=== PATIENT | male | born 1960 | race Caucasian/White ===

== ENCOUNTER 2016-12-02 05:19 | Emergency (ER) | payer OTHER ==
[~2016-12-02] VITALS: Ht 182.9 cm; Wt 88.0 kg
[2016-12-02 05:51] VITALS: BP 133/91
--- NOTE | 2016-12-02 05:56 | NUR ---
gloria ku at bedside to imelda horton.
== END 2016-12-02 06:19 | disposition home or self-care (01) ==
LOC: ER 05:21
DX: L50.9 Urticaria, unspecified (principal)
CPT/HCPCS: 99283; A4606; Z7610

== ENCOUNTER 2018-11-08 16:57 | Emergency (ER) | payer MEDICAID, OTHER ==
[~2018-11-08] VITALS: Ht 182.9 cm; Wt 94.3 kg
--- NOTE | 2018-11-08 17:32 | NUR ---
GENERALIZED WEAKNESS X 1 WEEK. PT SPEAKING W/ HIS [place] LANGUAGE, FAMILY MEMBER @ BS HELPING W/ TRANSLATION. PT AAOX4, VSS. DENIES CP, SOB, DIZZINESS, N/V/D @ THIS TIME. 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 PT SEEN BY CANDY VAUGHN & WILL CONT TO MONITOR.
[2018-11-08 17:57] LABS: BASOPHILS # (AUTO) 0.1 /CMM (0.0-0.2); BASOPHILS % (AUTO) 1.2 % (0.0-2.0); EOSINOPHILS % (AUTO) 4.9 % (0.0-6.0); HEMATOCRIT 44 % (39-51); HEMOGLOBIN 15.1 g/dL (13.5-17.5); LYMPHOCYTES # (AUTO) 1.5 /CMM (0.8-4.8); LYMPHOCYTES % (AUTO) 26.4 % (20.0-44.0); MEAN CORPUSCULAR HGB CONC 34 g/dl (31.0-36.0); MEAN CORPUSCULAR VOLUME 97 fL (80-96); MONOCYTES # (AUTO) 0.5 /CMM (0.1-1.30); NEUTROPHILS # (AUTO) 3.3 /CMM (1.8-8.9); NEUTROPHILS % (AUTO) 58.5 % (43.0-81.0); PLATELET COUNT (AUTO) 254 /CMM (150-450); RED BLOOD CELL COUNT(AUTO) 4.51 MIL/uL (4.5-6.0); WHITE BLOOD COUNT (AUTO) 5.7 K/uL (4.3-11.0)
[2018-11-08] MEDS ORDERED: IV NS 0.9% 1,000 ML BAG IV ONE (18:00)
[2018-11-08 18:07] LABS: CALCIUM, SERUM 8.9 mg/dL (8.5-10.1); CARBON DIOXIDE 29 mmol/L (21-32); CHLORIDE 105 mmol/L (98-107); CREATININE 1.1 mg/dL (0.6-1.3); GLUCOSE 142 mg/dL (74-106); POTASSIUM 3.8 mmol/L (3.5-5.1); SODIUM SERUM 140 mmol/L (136-145); UREA NITROGEN, BLOOD 11 mg/dL (7-18)
[2018-11-08 18:23] LABS: ALANINE AMINOTRANSFERASE 38 U/L (12-78); ALKALINE PHOSPHATASE 162 U/L (46-116); ASPARTATE AMINOTRANSFERASE 29 U/L (15-37); BILIRUBIN,DIRECT 0.1 mg/dL (0.0-0.2); BILIRUBIN,TOTAL 0.2 mg/dL (0.2-1.0); LIPASE 249 U/L (73-393); TOTAL PROTEIN, SERUM 7.3 g/dL (6.4-8.2)
--- NOTE | 2018-11-08 18:44 | NUR ---
PT AMB TO BR WITHOUT DIFFICULTY. URINE COLLECTED & SENT TO LAB.
[2018-11-08 18:52] LABS: APPEARANCE,URINE Clear (CLEAR); BILIRUBIN,URINE Negative (NEGATIVE); BLOOD, URINE Negative Ery/uL (NEGATIVE); COLOR,URINE Yellow (YELLOW); KETONES,URINE Negative (NEGATIVE); LEUKOCYTE ESTERASE ,URINE Negative (NEGATIVE); NITRITE, URINE Negative (NEGATIVE); PROTEIN,URINE Negative (NEGATIVE); UGLUCOSE Negative (NEGATIVE); UROBILINOGEN,URINE 0.2 EU/dL (0.2)
--- NOTE | 2018-11-08 19:29 | NUR ---
Patient discharged to home in stable condition. Written and verbal after care instructions given. Patient verbalizes understanding of instruction. IV removed. Catheter intact and site benign. Pressure and 4x4 applied to site. No bleeding noted.
[2018-11-08 19:30] VITALS: BP 140/82
== END 2018-11-08 19:31 | disposition home or self-care (01) ==
LOC: ER 17:03
DX: R10.9 Unspecified abdominal pain (principal); R53.1 Weakness; G40.909 Epilepsy, unspecified, not intractable, without status epilepticus
CPT/HCPCS: 36415; 80048; 80076; 81001; 83690; 84484; 85025; 93005; 99284; A4606; J7030; 81000-TC

== ENCOUNTER 2019-10-13 03:46 | Emergency (ER) | payer OTHER ==
[~2019-10-13] VITALS: Ht 182.9 cm; Wt 93.0 kg
--- NOTE | 2019-10-13 04:06 | NUR ---
BIBWIFE FROM HOME TO ER BED 2. AAOX4, NO RESP DISTRESS NOTED, BREATHING EVEN AND UNLABORED. C/O L FLANK PAIN SINCE YESTERDAY. RATE PAIN 8/10 CRAMPING AND TIGHT FEELING. PT'S REPORT THAT HE IS ALSO NAUSEOUS AND HAD DIARRHEA SINCE YESTERDAY. REPORTS THAT SHE GAVE PEPTO BISMUTH YESTERDAY. IS AT BEDSIDE FOR EVAL. AWAITING ORDERS
[2019-10-13] MEDS ORDERED: IV NS 0.9% 500 ML BAG IV ONE (04:30)
[2019-10-13 04:37] LABS: MONOCYTES # (AUTO) 0.7 /CMM (0.1-1.30)
[2019-10-13 04:41] LABS: BASOPHILS % (AUTO) 0.3 % (0.0-2.0); EOSINOPHILS % (AUTO) 1.1 % (0.0-6.0); HEMATOCRIT 42 % (39-51); HEMOGLOBIN 14.6 g/dL (13.5-17.5); LYMPHOCYTES # (AUTO) 1.6 /CMM (0.8-4.8); LYMPHOCYTES % (AUTO) 33.7 % (20.0-44.0); MEAN CORPUSCULAR HGB CONC 35 g/dl (31.0-36.0); MEAN CORPUSCULAR VOLUME 97 fL (80-96); NEUTROPHILS # (AUTO) 2.5 /CMM (1.8-8.9); NEUTROPHILS % (AUTO) 50.9 % (43.0-81.0); PLATELET COUNT (AUTO) 210 /CMM (150-450); RED BLOOD CELL COUNT(AUTO) 4.35 MIL/uL (4.5-6.0); WHITE BLOOD COUNT (AUTO) 4.8 K/uL (4.3-11.0)
[2019-10-13 04:50] LABS: ALBUMIN 3.4 g/dL (3.4-5.0); BILIRUBIN,DIRECT 0.1 mg/dL (0.0-0.2); BILIRUBIN,TOTAL 0.4 mg/dL (0.2-1.0); CALCIUM, SERUM 8.4 mg/dL (8.5-10.1); POTASSIUM 3.5 mmol/L (3.5-5.1); TOTAL PROTEIN, SERUM 6.8 g/dL (6.4-8.2)
--- NOTE | 2019-10-13 05:40 | NUR ---
Patient discharged to home in stable condition. Written and verbal after care instructions given. Patient verbalizes understanding of instruction.IV removed. Catheter intact and site benign. Pressure and 4x4 applied to site. No bleeding noted. Pt ambulatory with a steady gait
[2019-10-13 05:45] VITALS: BP 106/72
== END 2019-10-13 05:45 | disposition home or self-care (01) ==
LOC: ER 03:46
DX: A08.4 Viral intestinal infection, unspecified (principal); G40.909 Epilepsy, unspecified, not intractable, without status epilepticus
CPT/HCPCS: 36415; 71045; 80048; 80076; 83690; 85025; 99284; J7040

== ENCOUNTER 2021-01-19 19:00 | Emergency (ER) | payer OTHER ==
[~2021-01-19] VITALS: Ht 185.4 cm; Wt 93.0 kg
[2021-01-19 19:11] VITALS: BP 134/81
[2021-01-19] MEDS ORDERED: ACET-2605 PO (20:29)
== END 2021-01-19 21:07 | disposition home or self-care (01) ==
LOC: ER 19:00
DX: S92.512A Displaced fracture of proximal phalanx of left lesser toe(s), initial encounter for closed fracture (principal); G40.909 Epilepsy, unspecified, not intractable, without status epilepticus; Z79.899 Other long term (current) drug therapy; X50.1XXA Overexertion from prolonged static or awkward postures, initial encounter; Y93.89 Activity, other specified; Y92.89 Other specified places as the place of occurrence of the external cause; Y99.8 Other external cause status
CPT/HCPCS: 73610-TC; 73630-TC

== ENCOUNTER 2021-05-19 18:31 | Emergency (ER) | payer OTHER ==
[~2021-05-19] VITALS: Ht 182.9 cm; Wt 92.1 kg
[~2021-05-19 18:31] MED LIST: ACET-2605 PO
--- NOTE | 2021-05-19 19:36 | NUR ---
pt c/o swelling left foot lower extremity. noted mild rash, flat. pt on monitor at this time.
[2021-05-19 21:04] LABS: BASOPHILS % (AUTO) 0.6 % (0.0-2.0); EOSINOPHILS % (AUTO) 3.6 % (0.0-6.0); HEMATOCRIT 44 % (39-51); HEMOGLOBIN 14.9 g/dL (13.5-17.5); LYMPHOCYTES # (AUTO) 1.9 K/uL (0.8-4.8); LYMPHOCYTES % (AUTO) 30.1 % (20.0-44.0); MEAN CORPUSCULAR HGB CONC 34 g/dl (31.0-36.0); MEAN CORPUSCULAR VOLUME 99 fL (80-96); MONOCYTES # (AUTO) 0.7 K/uL (0.1-1.30); MONOCYTES % (AUTO) 10.3 % (2.0-12.0); NEUTROPHILS # (AUTO) 3.5 K/uL (1.8-8.9); NEUTROPHILS % (AUTO) 55.4 % (43.0-81.0); PLATELET COUNT (AUTO) 222 K/uL (150-450); RED BLOOD CELL COUNT(AUTO) 4.46 MIL/uL (4.5-6.0); WHITE BLOOD COUNT (AUTO) 6.4 K/uL (4.3-11.0)
[2021-05-19 21:13] LABS: CALCIUM, SERUM 8.4 mg/dL (8.5-10.1); CREATININE 1.1 mg/dL (0.6-1.3); POTASSIUM 4.1 mmol/L (3.5-5.1)
--- NOTE | 2021-05-19 21:42 | NUR ---
Patient discharged to home in stable condition. Written and verbal after care instructions given. Patient verbalizes understanding of instruction.
[2021-05-19 21:46] VITALS: BP 115/51
== END 2021-05-19 21:47 | disposition home or self-care (01) ==
LOC: ER 18:36
DX: R21 Rash and other nonspecific skin eruption (principal); R22.42 Localized swelling, mass and lump, left lower limb; R23.3 Spontaneous ecchymoses; G40.909 Epilepsy, unspecified, not intractable, without status epilepticus; Z79.899 Other long term (current) drug therapy
CPT/HCPCS: 36415; 80048-TC; 85025-TC; 93971-TC

== ENCOUNTER 2022-02-24 17:55 | Emergency (ER) | payer OTHER ==
[~2022-02-24] VITALS: Ht 182.9 cm; Wt 93.9 kg
[2022-02-24] MEDS ORDERED: ONDANSETRON HCL/PF 4 MG/2 ML VIAL IVP ONE (19:00)
[2022-02-24] MEDS ORDERED: MORPHINE SULFATE INJ 2 MG/ML DISP.SYRIN IV ONE (19:00)
[2022-02-24] MEDS ORDERED: MORPHINE SULFATE INJ 4 MG/ML DISP.SYRIN ONE (19:33)
[2022-02-24] MEDS ORDERED: ONDANSETRON HCL/PF 4 MG/2 ML VIAL ONE (19:33)
--- NOTE | 2022-02-24 19:33 | NUR ---
BIB CAREGIVER C/O LEFT HIP PAIN X1WK, DENIES TRAUMA, HX PERIPHERAL NEUROPATHY X1 YEAR. PT AWAKE AND ALERT X4 BREATHING EVEN AND UNLABORED. ALL V/S WNL.
--- NOTE | 2022-02-24 19:46 | NUR ---
20G IV LINE ESTABLSIHED AT [facility]. PATENT AND INTACT. MEDICATION ADMINSTERRED PER MD ORDER.
[2022-02-24 20:04] LABS: CALCIUM, SERUM 8.7 mg/dL (8.5-10.1)
[2022-02-24 20:08] LABS: ALBUMIN 4.1 g/dL (3.4-5.0); BILIRUBIN,DIRECT 0.1 mg/dL (0.0-0.2); BILIRUBIN,TOTAL 0.3 mg/dL (0.2-1.0); TOTAL PROTEIN, SERUM 7.4 g/dL (6.4-8.2)
--- NOTE | 2022-02-24 20:12 | NUR ---
PT UNABLE TO GIVE URINE AT THIS TIME
[2022-02-24 20:21] LABS: BASOPHILS % (AUTO) 0.6 % (0.0-2.0); EOSINOPHILS % (AUTO) 2.2 % (0.0-6.0); HEMATOCRIT 45 % (39-51); HEMOGLOBIN 15.6 g/dL (13.5-17.5); LYMPHOCYTES # (AUTO) 1.6 K/uL (0.8-4.8); LYMPHOCYTES % (AUTO) 24.6 % (20.0-44.0); MEAN CORPUSCULAR HGB CONC 35 g/dl (31.0-36.0); MEAN CORPUSCULAR VOLUME 96 fL (80-96); MONOCYTES # (AUTO) 0.7 K/uL (0.1-1.30); MONOCYTES % (AUTO) 11.4 % (2.0-12.0); NEUTROPHILS # (AUTO) 3.9 K/uL (1.8-8.9); NEUTROPHILS % (AUTO) 61.2 % (43.0-81.0); PLATELET COUNT (AUTO) 233 K/uL (150-450); RED BLOOD CELL COUNT(AUTO) 4.66 MIL/uL (4.5-6.0); WHITE BLOOD COUNT (AUTO) 6.3 K/uL (4.3-11.0)
[2022-02-24] MEDS ORDERED: HYDR-3972 PO (20:43)
[2022-02-24] MEDS ORDERED: PRED50TA PO (20:43)
--- NOTE | 2022-02-24 20:45 | NUR ---
Patient discharged to home in stable condition. Written and verbal after care instructions given. Patient verbalizes understanding of instruction. Assisted by caregiver and PT ambulated via walker without incident.
[2022-02-24 21:52] VITALS: BP 111/87
== END 2022-02-24 20:45 | disposition home or self-care (01) ==
LOC: ER 18:04
DX: M54.32 Sciatica, left side (principal); Z86.69 Personal history of other diseases of the nervous system and sense organs; Z79.1 Long term (current) use of non-steroidal anti-inflammatories (NSAID)
CPT/HCPCS: 36415; 71045; 72131; 80048; 80076; 83690; 85025; 96374; 96375; 99285; J2270; J2405

== ENCOUNTER 2022-03-25 18:00 | Emergency (ER) | payer OTHER ==
[~2022-03-25] VITALS: Ht 182.9 cm; Wt 93.0 kg
[~2022-03-25 18:00] MED LIST changes: +HYDR-3972 PO; +PRED50TA PO
--- NOTE | 2022-03-25 18:08 | NUR ---
TO ER BED 3, NO BM X 3 DAYS,C/O ABDOMINAL PAIN, AAOX3, BREATHING EVEN AND NON LABORED, AWAITING MD ORDERS
--- NOTE | 2022-03-25 19:14 | NUR ---
REPORT GIVEN TO NURSE GUERRERO
[2022-03-25 19:45] LABS: BASOPHILS % (AUTO) 0.6 % (0.0-2.0); EOSINOPHILS % (AUTO) 1.6 % (0.0-6.0); HEMATOCRIT 42 % (39-51); HEMOGLOBIN 14.5 g/dL (13.5-17.5); LYMPHOCYTES # (AUTO) 1.3 K/uL (0.8-4.8); LYMPHOCYTES % (AUTO) 23.9 % (20.0-44.0); MEAN CORPUSCULAR HGB CONC 35 g/dl (31.0-36.0); MEAN CORPUSCULAR VOLUME 96 fL (80-96); MONOCYTES # (AUTO) 0.6 K/uL (0.1-1.30); MONOCYTES % (AUTO) 9.9 % (2.0-12.0); NEUTROPHILS # (AUTO) 3.6 K/uL (1.8-8.9); PLATELET COUNT (AUTO) 225 K/uL (150-450); RED BLOOD CELL COUNT(AUTO) 4.38 MIL/uL (4.5-6.0); WHITE BLOOD COUNT (AUTO) 5.6 K/uL (4.3-11.0)
[2022-03-25 19:49] LABS: BILIRUBIN,DIRECT 0.1 mg/dL (0.0-0.2); BILIRUBIN,TOTAL 0.4 mg/dL (0.2-1.0); CALCIUM, SERUM 8.8 mg/dL (8.5-10.1); POTASSIUM 3.3 mmol/L (3.5-5.1)
--- NOTE | 2022-03-25 20:05 | NUR ---
RECEIVED PATIENT AWAKE, AMBULATORY, ABLE TO MAKE NEEDS KNOWN. PATIENT JUST CAME BACK FROM CT SCAN. VITALS CHECKED.
[2022-03-25] MEDS ORDERED: AMOX-430 PO (21:26)
[2022-03-25 21:37] VITALS: BP 134/89
--- NOTE | 2022-03-25 21:37 | NUR ---
Patient discharged to home in stable condition. Written and verbal after care instructions given. Patient verbalizes understanding of instruction.
--- NOTE | 2022-03-25 21:37 | NUR ---
IV CANNULA REMOVED
== END 2022-03-25 21:38 | disposition home or self-care (01) ==
LOC: ER 18:07
DX: K62.89 Other specified diseases of anus and rectum (principal); Z86.69 Personal history of other diseases of the nervous system and sense organs; Z79.899 Other long term (current) drug therapy
CPT/HCPCS: 36415; 80048-TC; 80076-TC; 83690-TC; 85025-TC

== ENCOUNTER 2022-04-10 02:31 | Emergency (ER) | payer OTHER ==
[~2022-04-10] VITALS: Ht 182.9 cm; Wt 83.5 kg
[~2022-04-10 02:31] MED LIST changes: +AMOX-430 PO
--- NOTE | 2022-04-10 02:51 | NUR ---
BIBFAMILY. TO ER BED 3. AAOX4. NOT IN RESP DISTRESS. AMBULATORY. CAME IN FOR EPIGASTRIC PAIN W/ NO REGULAR BOWEL MOVEMENT X 3 WEEKS. +N/-V/-D. PT IS AFEBRILE. PAIN 04/19. AWAITING MD FOR EVAL
[2022-04-10 03:29] LABS: BASOPHILS % (AUTO) 0.8 % (0.0-2.0); EOSINOPHILS % (AUTO) 4.2 % (0.0-6.0); HEMATOCRIT 41 % (39-51); HEMOGLOBIN 14.3 g/dL (13.5-17.5); LYMPHOCYTES # (AUTO) 1.7 K/uL (0.8-4.8); LYMPHOCYTES % (AUTO) 31.4 % (20.0-44.0); MEAN CORPUSCULAR HGB CONC 34 g/dl (31.0-36.0); MEAN CORPUSCULAR VOLUME 96 fL (80-96); MONOCYTES # (AUTO) 0.6 K/uL (0.1-1.30); MONOCYTES % (AUTO) 10.9 % (2.0-12.0); NEUTROPHILS # (AUTO) 2.9 K/uL (1.8-8.9); NEUTROPHILS % (AUTO) 52.7 % (43.0-81.0); PLATELET COUNT (AUTO) 236 K/uL (150-450); RED BLOOD CELL COUNT(AUTO) 4.31 MIL/uL (4.5-6.0); WHITE BLOOD COUNT (AUTO) 5.6 K/uL (4.3-11.0)
[2022-04-10] MEDS ORDERED: FAMOTIDINE/PF INJ 20 MG/2 ML VIAL IV ONE (03:30)
[2022-04-10] MEDS ORDERED: MORPHINE SULFATE INJ 4 MG/ML DISP.SYRIN ONE ×2 (03:30→06:07)
[2022-04-10] MEDS ORDERED: ONDANSETRON HCL/PF 4 MG/2 ML VIAL ONE (03:30)
[2022-04-10] MEDS: FAMOTIDINE/PF INJ 20 MG/2 ML VIAL IV ONE (03:35)
[2022-04-10] MEDS: MORPHINE SULFATE INJ 2 MG/ML DISP.SYRIN IV ONE ×2 (03:35→06:12)
[2022-04-10] MEDS: ONDANSETRON HCL/PF 4 MG/2 ML VIAL IVP ONE (03:35)
[2022-04-10] MEDS: IV NS 0.9% 1,000 ML IV ONE (03:54)
[2022-04-10 04:08] LABS: POTASSIUM 3.6 mmol/L (3.5-5.1)
--- NOTE | 2022-04-10 04:11 | NUR ---
FARIDA COLLECTED AND SENT TO LAB
[2022-04-10 04:14] LABS: ALBUMIN 3.8 g/dL (3.4-5.0); BILIRUBIN,DIRECT 0.1 mg/dL (0.0-0.2); BILIRUBIN,TOTAL 0.4 mg/dL (0.2-1.0)
--- NOTE | 2022-04-10 05:18 | NUR ---
PT STILL UNABLE TO PROVIDE URINE SAMPLE
[2022-04-10 05:26] VITALS: BP 131/77
--- NOTE | 2022-04-10 05:57 | NUR ---
UNABLE TO REACH DR LOPEZ AT [phone]. LEFT A MEESAGE WITH CALL BACK NUMBER. WAITING FOR HIS CALL BACK
--- NOTE | 2022-04-10 07:52 | NUR ---
ACCEPTED AT [facility] PER DR [id number]
--- NOTE | 2022-04-10 07:52 | NUR ---
dr richards talking to dr warren at [facility].
--- NOTE | 2022-04-10 08:06 | NUR ---
PT ACCEPTED TO [facility] UNDER DR DUNHAM MED SURG BED REQUESTED, WILL CALL BACK WITH BED ASSIGNMENT AT A LATER TIME AUTHORIZATION FOR AMBULANCE [id number] [facility]UL[facility] [phone] [facility] [phone]
[2022-04-10] MEDS ORDERED: DICY20TA11 PO (08:19)
[2022-04-10] MEDS ORDERED: TAMS-12 PO (08:19)
[2022-04-10] MEDS ORDERED: CLON0.5T4 PO (08:19)
[2022-04-10] MEDS ORDERED: PREG200C59 PO (08:19)
[2022-04-10] MEDS ORDERED: CHOL500062 PO (08:19)
[2022-04-10] MEDS ORDERED: PHEN100C12 PO (08:19)
--- NOTE | 2022-04-10 09:24 | NUR ---
pt will go M/S bed 2281 # for report [phone]
--- NOTE | 2022-04-10 09:28 | NUR ---
CALLED [facility] FOR BLS TRANSPORT TO [facility] ETA [phone]
--- NOTE | 2022-04-10 09:40 | NUR ---
report given to alyson parada at [facility] awaiting transport ambulance.
--- NOTE | 2022-04-10 10:26 | NUR ---
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 PT A/O X4, VERBALLY RESPONSIVE, ABLE TO AMBULATE.
--- NOTE | 2022-04-10 10:30 | NUR ---
Patient discharged to [facility] via ambulance. Written and verbal after care instructions given. Patient verbalizes understanding of instruction.
== END 2022-04-10 10:30 | disposition short-term general hospital (02) ==
LOC: ER 02:33
DX: R10.13 Epigastric pain (principal); R63.0 Anorexia; Z20.822 Contact with and (suspected) exposure to COVID-19; G40.909 Epilepsy, unspecified, not intractable, without status epilepticus; G62.9 Polyneuropathy, unspecified
CPT/HCPCS: 99285; 74176; 96374; 76705; 96375; 96361; 87426; 96376; 85025; 80048; 83690; 80076; 36415; J2270 ×2; J3490; J2405; J7030; C9803

== ENCOUNTER 2022-09-03 19:40 | Emergency (ER) | payer OTHER ==
[~2022-09-03] VITALS: Ht 182.9 cm; Wt 83.5 kg
[~2022-09-03 19:40] MED LIST changes: -ACET-2605 PO; -AMOX-430 PO; +CHOL500062 PO; +CLON0.5T4 PO; +DICY20TA11 PO; -HYDR-3972 PO; +PHEN100C12 PO; -PRED50TA PO; +PREG200C59 PO; +TAMS-12 PO
--- NOTE | 2022-09-03 20:56 | NUR ---
SWAB FOR COVID19 AND RAPID INFLUENZA SENT TO LAB
== END 2022-09-03 21:30 | disposition home or self-care (01) ==
LOC: ER 19:42
DX: U07.1 COVID-19 (principal); J06.9 Acute upper respiratory infection, unspecified; G40.909 Epilepsy, unspecified, not intractable, without status epilepticus; G62.9 Polyneuropathy, unspecified; Z79.899 Other long term (current) drug therapy
CPT/HCPCS: 99283; 87426; 87804; C9803